=== PATIENT | female | born 1985 | race Two or more races ===

== ENCOUNTER 2023-03-17 09:48 | Emergency (ER) | payer MEDICAID ==
[~2023-03-17] VITALS: Ht 170.2 cm; Wt 94.2 kg
[~2023-03-17 09:48] MED LIST: PREN-96 PO
[2023-03-17 11:22] VITALS: BP 135/76; PULSE 74; RESP 18; TEMP 97.4; O2SAT 97
[2023-03-17] MEDS ORDERED: DexAMETHasone SOD PHOS 10MG/1ML VIAL INJ PO ONE (13:30)
[2023-03-17] MEDS ORDERED: BENZ100C97 PO (13:45)
== END 2023-03-17 13:56 | disposition home or self-care (01) ==
LOC: ER 09:48
DX: J40 Bronchitis, not specified as acute or chronic (principal); Z79.899 Other long term (current) drug therapy; Z88.8 Allergy status to other drugs, medicaments and biological substances
CPT/HCPCS: 99283; J1100